=== PATIENT | male | born 1985 | race Caucasian/White ===

== ENCOUNTER 2020-02-10 15:00 | Emergency (ER) | payer MEDICAID ==
[~2020-02-10] VITALS: Ht 160 cm; Wt 99.3 kg
[~2020-02-10 15:00] MED LIST: CEPHALEXIN500 M1 PO; DEPAKOTE 250MG250 MG PO; HYDROXYZINE50 MG PO; LYRICA100 MG PO; METADATE CD20 M1 PO; NORCO 325 MG-51 TA1 PO; NORFLEX100 MG PO; RITALIN 5MG5 MG/TAB PO; SAPHRIS5 MG PO; ULTRAM50 M1 PO; WELLBUTRIN100 MG PO
[2020-02-10] MEDS ORDERED: ZOFRAN ODT4 MG PO (16:14)
[2020-02-10 17:00] VITALS: BP 119/79
== END 2020-02-10 17:00 | disposition home or self-care (01) ==
LOC: ED 15:00
DX: G44.309 Post-traumatic headache, unspecified, not intractable (principal); F07.81 Postconcussional syndrome; M54.2 Cervicalgia; W01.198A Fall on same level from slipping, tripping and stumbling with subsequent striking against other object, initial encounter; Y92.59 Other trade areas as the place of occurrence of the external cause
CPT/HCPCS: J1885

== ENCOUNTER 2020-10-21 10:45 | Emergency (ER) | payer MEDICAID ==
[~2020-10-21 10:45] MED LIST changes: +ZOFRAN ODT4 MG PO
[2020-10-21] MEDS ORDERED: AUGMENTIN 875-1 EAC1 PO (11:16)
[2020-10-21 11:33] VITALS: BP 122/79
== END 2020-10-21 11:50 | disposition home or self-care (01) ==
LOC: ED 10:45
DX: K11.20 Sialoadenitis, unspecified (principal); F17.210 Nicotine dependence, cigarettes, uncomplicated; Z88.6 Allergy status to analgesic agent
CPT/HCPCS: J1100; J1885